=== PATIENT | female | born 1950 | race Caucasian/White ===

== ENCOUNTER 2017-03-21 09:58 | Outpatient (CLI) | payer OTHER, BC | END 2017-03-21 17:11 | disposition home or self-care (01) | LOC: SMA 09:58 | PROVIDERS: ATTEND Obstetrics & Gynecology | DX: Z12.31 Encounter for screening mammogram for malignant neoplasm of breast (principal) | CPT/HCPCS: G0202 ==

== ENCOUNTER 2017-04-04 13:43 | Outpatient (CLI) | payer OTHER, BC | END 2017-04-04 18:57 | disposition home or self-care (01) | LOC: SUS 13:43 | PROVIDERS: ATTEND Family Medicine | DX: R92.2 Inconclusive mammogram (principal) | CPT/HCPCS: 76641 ==

== ENCOUNTER 2017-07-31 12:39 | Outpatient (CLI) | payer OTHER, BC | END 2017-07-31 20:25 | disposition home or self-care (01) | LOC: SUS 12:39 | PROVIDERS: ATTEND Obstetrics & Gynecology | DX: N63.20 Unspecified lump in the left breast, unspecified quadrant (principal) | CPT/HCPCS: 76642 ==

== ENCOUNTER 2018-02-26 09:50 | Outpatient (CLI) | payer OTHER, BC | END 2018-02-26 20:20 | disposition home or self-care (01) | LOC: SUS 09:50 | PROVIDERS: ATTEND Obstetrics & Gynecology | DX: N63.20 Unspecified lump in the left breast, unspecified quadrant (principal) | CPT/HCPCS: 76642 ==

== ENCOUNTER 2018-08-06 09:28 | Outpatient (CLI) | payer OTHER, BC | END 2018-08-06 19:54 | disposition home or self-care (01) | LOC: SMA 09:28 | PROVIDERS: ATTEND Obstetrics & Gynecology | DX: Z12.31 Encounter for screening mammogram for malignant neoplasm of breast (principal) | CPT/HCPCS: 77067 ==

== ENCOUNTER 2019-02-04 09:53 | Outpatient (CLI) | payer OTHER, BC | END 2019-02-04 20:46 | disposition home or self-care (01) | LOC: SUS 09:53 | PROVIDERS: ATTEND Obstetrics & Gynecology | DX: N60.02 Solitary cyst of left breast (principal) | CPT/HCPCS: 76641 ==

== ENCOUNTER 2019-12-01 09:55 | Outpatient (CLI) | payer OTHER, BC | END 2019-12-01 20:24 | disposition home or self-care (01) | LOC: SMA 09:55 | PROVIDERS: ATTEND Obstetrics & Gynecology | DX: Z12.31 Encounter for screening mammogram for malignant neoplasm of breast (principal); N64.89 Other specified disorders of breast | CPT/HCPCS: 77067 ==

== ENCOUNTER 2020-03-21 09:50 | Outpatient (CLI) | payer OTHER, BC | END 2020-03-21 20:23 | disposition home or self-care (01) | LOC: SUS 09:50 | PROVIDERS: ATTEND Obstetrics & Gynecology | DX: R92.2 Inconclusive mammogram (principal) | CPT/HCPCS: 76641 ==

== ENCOUNTER 2020-12-15 08:24 | Outpatient (CLI) | payer OTHER, BC | END 2020-12-15 20:51 | disposition home or self-care (01) | LOC: SMA 08:24 | PROVIDERS: ATTEND Obstetrics & Gynecology | DX: Z12.31 Encounter for screening mammogram for malignant neoplasm of breast (principal); N64.89 Other specified disorders of breast | CPT/HCPCS: 77067 ==

== ENCOUNTER 2021-12-25 09:21 | Outpatient (CLI) | payer OTHER, BC | END 2021-12-25 20:04 | disposition home or self-care (01) | LOC: SMA 09:21 | PROVIDERS: ATTEND Obstetrics & Gynecology | DX: Z12.31 Encounter for screening mammogram for malignant neoplasm of breast (principal) | CPT/HCPCS: 77067 ==

== ENCOUNTER 2022-02-26 08:17 | Outpatient (CLI) | payer OTHER, BC | END 2022-02-26 19:05 | disposition home or self-care (01) | LOC: SUS 08:17 | PROVIDERS: ATTEND Obstetrics & Gynecology | DX: R92.2 Inconclusive mammogram (principal); Z80.3 Family history of malignant neoplasm of breast | CPT/HCPCS: 76641 ==

== ENCOUNTER 2023-03-14 08:40 | Outpatient (CLI) | payer OTHER, BC | END 2023-03-14 19:24 | disposition home or self-care (01) | LOC: SMA 08:40 | PROVIDERS: ATTEND Obstetrics & Gynecology | DX: Z12.31 Encounter for screening mammogram for malignant neoplasm of breast (principal); R92.30 Dense breasts, unspecified | CPT/HCPCS: 76641; 77067 ==

== ENCOUNTER 2024-03-16 08:08 | Outpatient (CLI) | payer OTHER, BC | END 2024-03-16 18:51 | disposition home or self-care (01) | LOC: SMA 08:08 | PROVIDERS: ATTEND Obstetrics & Gynecology | DX: Z12.31 Encounter for screening mammogram for malignant neoplasm of breast (principal); R92.343 Mammographic extreme density, bilateral breasts | CPT/HCPCS: 76641; 77067 ==